=== PATIENT | female | born 1995 | race Caucasian/White ===

== ENCOUNTER 2017-08-15 05:47 | Day surgery (SDC) | payer OTHER ==
[~2017-08-15] VITALS: Ht 152.4 cm; Wt 62.4 kg
[2017-08-15] MEDS ORDERED: SODIUM CHLORIDE 0.9% 1,000 ML IV SCH (06:22)
[2017-08-15 06:23] VITALS: BP 120/73
[2017-08-15] MEDS ORDERED: LIDOCAINE 2%, 20ML ONE (07:34)
[2017-08-15] MEDS ORDERED: FENTANYL PF 100 MCG/2ML ONE (07:55)
[2017-08-15] MEDS ORDERED: MIDAZOLAM 1 MG/ML, 5ML ONE (07:55)
[2017-08-15] MEDS ORDERED: FLUMAZENIL 0.1 MG/1 ML, 5ML ONE (07:55)
[2017-08-15] MEDS ORDERED: NALOXONE 1 MG/ML, 2ML ONE (07:55)
== END 2017-08-15 08:35 | disposition home or self-care (01) ==
LOC: OUT 05:47
PROVIDERS: ATTEND Surgery
DX: D37.6 Neoplasm of uncertain behavior of liver, gallbladder and bile ducts (principal); J45.909 Unspecified asthma, uncomplicated
CPT/HCPCS: 36415; 47000; 76942; 85610; J2250; J3010; J3490; J2310